=== PATIENT | female | born 1990 | race African-American/Black ===

== ENCOUNTER 2018-11-19 06:46 | Emergency (ER) | payer BC, OTHER ==
[2018-11-19 07:39] VITALS: BP 152/63; PULSE 62; TEMP 99; BMI 43.0
[2018-11-19] MEDS ORDERED: FLUORESCEIN NA 1 EA STRIP ONE (07:52)
--- NOTE | 2018-11-19 08:03 | PDOC ---
History of Present Illness - General Chief Complaint: Eye Problem Stated Complaint: EYE PROBLEM Time Seen by Provider: 11/19/18 07:45 History Source: Patient Exam Limitations: No Limitations - History of Present Illness Initial Comments: 11/19/18 07:58 28 yo F w/ astigmatism, contact lens wearer, comes in c/o 3 days of L sided eye redness, itching, and gravel sensation, w/ mild yellowish discharge She says that she was at work, her eye started itching, she removed the contact lenses, washed them, put hem back in and she has had symptoms since. Now her R eye is starting to itch. NO eye pain, no visual changes. Pt says that she cannot see without her contacts and she does not have glasses but plans to go to her occupational safety and health manager today to get a pair of glasses. No other compaints today, denies FB entry in eyes, no photophobia, no fever/chills, no known sick contacts with pink eye. NO recent travel, no rash. 11/19/18 08:08 Past History - Past Medical History Allergies/Adverse Reactions: Allergies Allergy/AdvReac Type Severity Reaction Status Date / Time No Known Allergies Allergy Verified 11/19/18 07:38 Home Medications: Ambulatory Orders Acetaminophen [Tylenol .Regular Strength -] 650 mg PO Q3H PRN #1 tablet Ibuprofen [Motrin -] 600 mg PO Q4H PRN #1 tablet 08/29/11 Amox-Tr/K Cl [Augmentin 875-125mg Tablet -] 1 each PO BID #0 tablet 09/05/11 Moxifloxacin HCl [Vigamox 0.5% Eye Drops -] 1 drop OU TID 10 Days #1 bot Asthma: No Cancer: No Cardiac Disorders: No CVA: No COPD: No CHF: No Dementia: No Diabetes: No GI Disorders: No Disorders: No HTN: No Hypercholesterolemia: No Liver Disease: No Seizures: No Thyroid Disease: No - Surgical History Abdominal Surgery: No Appendectomy: No Cardiac Surgery: No Cholecystectomy: No Lung Surgery: No Neurologic Surgery: No Orthopedic Surgery: No - Suicide/Smoking/Psychosocial Hx Smoking Status: No Smoking History: Never smoked Have you smoked in the past 12 months: No Number of Cigarettes Smoked Daily: 0 Hx Alcohol Use: No Drug/Substance Use Hx: No Substance Use Type: None Hx Substance Use Treatment: No Review of Systems - Review of Systems Able to Perform ROS?: Yes Constitutional: No: Chills, Fever, Malaise, Night Sweats HEENTM: Yes: Tearing. No: Eye Pain, Recent change in vision, Double Vision, Throat Pain Respiratory: No: Cough, Shortness of Breath Cardiac (ROS): No: Chest Pain, Palpitations, Chest Tightness ABD/GI: No: Diarrhea, Nausea, Vomiting, Abdominal cramping : No: Dysuria, Hematuria Musculoskeletal: No: Back Pain Integumentary: No: Rash Neurological: No: Headache, Numbness, Dizziness Psychiatric: No: Change in Appetite Endocrine: No: Unexplained Weight Loss *Physical Exam - Vital Signs Last Vital Signs Temp Pulse Resp BP Pulse Ox 99.0 F 62 18 152/63 99 11/19/18 07:35 11/19/18 07:35 11/19/18 07:35 11/19/18 07:35 11/19/18 07:35 - Physical Exam General Appearance: Yes: Nourished. No: Apparent Distress HEENT: positive: EOMI, RUBY, Normal ENT Inspection, Normal Voice, Other (L eye with conjunctival erythema, no FB seen. Vision: Unable to read eye chart without corrective lenses. Mild crusting on eyelid. No fluorescein uptake seen with blue light.). negative: Photophobia, Scleral Icterus (R), Scleral Icterus (L) Neck: positive: Supple. negative: Decreased range of motion Respiratory/Chest: negative: Respiratory Distress, Accessory Muscle Use Cardiovascular: positive: Regular Rate Musculoskeletal: positive: Normal Inspection Extremity: positive: Normal Capillary Refill, Normal Inspection, Normal Range of Motion. negative: Tender, Pedal Edema Integumentary: positive: Normal Color, Dry. negative: Jaundice, Rash Neurologic: positive: Fully Oriented, Alert, Normal Mood/Affect Medical Decision Making - Medical Decision Making 11/19/18 08:09 28 yo F w/ contact lens conjunctivitis. No corneal abrasions seen. WIll discharge with vigamox, ophtho. Wash hadn at all times. Return for worsening/concerning symptoms Pt verbalizes understanding and agrees with plan *DC/Admit/Observation/Transfer Diagnosis at time of Disposition: Conjunctivitis Qualifiers: Conjunctivitis type: acute Acute conjunctivitis type: unspecified Laterality: left Qualified Code(s): H10.32 - Unspecified acute conjunctivitis, left eye - Discharge Dispostion Disposition: HOME Condition at time of disposition: Stable - Prescriptions Prescriptions: Moxifloxacin HCl [Vigamox 0.5% Eye Drops -] 1 drop OU TID 10 Days #1 bot - Referrals Referrals: Abdirashid Mark MD [Primary Care Provider] - Kevin Santana MD [Staff Physician] - - Patient Instructions Printed Discharge Instructions: DI for Conjunctivitis Additional Instructions: Please go to your occupational safety and health manager to get glasses and follow up with the [employer] technical architect. Wash hands often. Return for worsening/concerning symptoms. - Post Discharge Activity Forms/Work/School Notes: Back to Work
== END 2018-11-19 08:22 | disposition home or self-care (01) ==
LOC: JERFT 06:46 → JER 06:46 → JERFT 08:22
DX: H10.32 Unspecified acute conjunctivitis, left eye (principal)
CPT/HCPCS: 99281-25

== ENCOUNTER 2022-06-01 21:41 | Emergency (ER) | payer OTHER ==
[2022-06-01 21:50] VITALS: BP 146/77; PULSE 76; RESP 20; TEMP 98; BMI 44.3
[2022-06-02 00:15] LABS: EPI CELLS 22 /uL (0-25.1); HYALINE CASTS 1 /uL (0-3.1); PH,URINE 5.5 (5.0-8.0); URINE APPEARANCE CLEAR; URINE BACTERIA 328 /uL (0-1359); URINE BILIRUBIN NEGATIVE (NEGATIVE); URINE COLOR YELLOW; URINE GLUCOSE (UA) NEGATIVE (NEGATIVE); URINE KETONE TRACE (NEGATIVE); URINE LEUK ESTERASE NEGATIVE (NEGATIVE); URINE NITRITE NEGATIVE (NEGATIVE); URINE PROTEIN NEGATIVE (NEGATIVE); URINE RBC 9 /uL (0-23.9); URINE UROBILINOGEN 0.2 mg/dL (0.2-1.0); URINE WBC 4 /uL (0-25.8)
[2022-06-02 00:23] LABS: HCG,QUALITATIVE URINE Negative
== END 2022-06-02 00:32 | disposition home or self-care (01) ==
LOC: JER 21:41 → JERFT 21:41
DX: N92.0 Excessive and frequent menstruation with regular cycle (principal)
CPT/HCPCS: 81003; 84703; 87086; 99283-25

== ENCOUNTER 2022-06-10 13:32 | Emergency (ER) | payer OTHER ==
[2022-06-10 13:44] VITALS: BP 130/70; PULSE 73; RESP 16; TEMP 97.5; BMI 44.3
[2022-06-10 14:54] LABS: BASO % 0.8 % (0-2.0); EOS % 1.1 % (0-4.5); HEMATOCRIT 32.4 % (32.4-45.2); HEMOGLOBIN 10.2 GM/dL (10.7-15.3); LYMPH % 31.5 % (8-40); MCH 22.2 pg (25.7-33.7); MCHC 31.4 g/dl (32.0-36.0); MEAN CELL VOLUME 70.7 fl (80-96); MEAN PLT VOLUME 8.9 fl (7.5-11.1); MONO % 5.1 % (3.8-10.2); NEUT % 61.5 % (42.8-82.8); PLATELET COUNT 355 10^3/uL (134-434); RBC 4.59 M/mm3 (3.60-5.2); RDW 18.4 % (11.6-15.6); WHITE BLOOD COUNT 6.7 K/mm3 (4.0-10.0)
[2022-06-10 14:55] LABS: EPI CELLS >36 /uL (0-25.1); HYALINE CASTS 1 /uL (0-3.1); PH,URINE 6.5 (5.0-8.0); URINE APPEARANCE CLEAR; URINE BACTERIA 1243 /uL (0-1359); URINE BILIRUBIN NEGATIVE (NEGATIVE); URINE COLOR YELLOW; URINE GLUCOSE (UA) NEGATIVE (NEGATIVE); URINE KETONE NEGATIVE (NEGATIVE); URINE LEUK ESTERASE NEGATIVE (NEGATIVE); URINE NITRITE NEGATIVE (NEGATIVE); URINE PROTEIN NEGATIVE (NEGATIVE); URINE WBC 37 /uL (0-25.8)
[2022-06-10 14:56] LABS: HCG,QUALITATIVE URINE Negative
[2022-06-10 14:58] LABS: URINE RBC 104 /uL (0-23.9)
[2022-06-10 15:18] LABS: ALBUMIN 3.6 g/dl (3.4-5.0); CALCIUM 9.7 mg/dL (8.5-10.1)
[2022-06-10 15:21] LABS: CREATININE 0.6 mg/dL (0.55-1.3)
[2022-06-10 15:23] LABS: BILIRUBIN,TOTAL 0.5 mg/dL (0.2-1); TOT PROT 7.5 g/dl (6.4-8.2)
== END 2022-06-10 16:42 | disposition home or self-care (01) ==
LOC: JER 13:32 → JERFT 13:32
DX: N92.0 Excessive and frequent menstruation with regular cycle (principal); D52.9 Folate deficiency anemia, unspecified; N83.291 Other ovarian cyst, right side
CPT/HCPCS: 36415; 76830-TC; 80053; 81003; 84703; 85025; 87086; 99284-25